=== PATIENT | female | born 1980 | race Caucasian/White ===

== ENCOUNTER 2016-11-06 02:20 | Inpatient (IN) | payer MEDICAID ==
[2016-11-06] MEDS ORDERED: LR 500 ML IV ONE (03:05)
[2016-11-06] MEDS ORDERED: CALCIUM CARBONATE 500 MG CHEWABLE TAB PO PRN (03:05)
[2016-11-06] MEDS ORDERED: LR 1,000 ML IV SCH (03:05)
[2016-11-06] MEDS ORDERED: AMPICILLIN SODIUM 2 GM in NS 100 ML IV ONE (03:30)
[2016-11-06] MEDS ORDERED: OXYTOCIN/RINGERS LACTATE 1,000 ML IV PRN (04:03)
[2016-11-06] MEDS ORDERED: TERBUTALINE SULFATE 1 MG/ML VIAL IV PRN (04:03)
[2016-11-06] MEDS ORDERED: LR 1,000 ML IV PRN (04:03)
[2016-11-06] MEDS ORDERED: EPSOM SALT 454 GM TP PRN (04:03)
[2016-11-06] MEDS ORDERED: LIDOCAINE 1% 30 ML SDV SC PRN (04:03)
[2016-11-06] MEDS ORDERED: MINERAL OIL 60 ML OIL TP PRN (04:03)
[2016-11-06 04:23] LABS: % IMMATURE GRANULYOCYTES 0.3 % (0.0-1.1); ABSOLUTE IMMATURE GRANULOCYTES 0.03 10^3/uL (0.00-0.10); ADD DIFF? NO; ADD MORPH? NO; ADD SCAN? NO; ATYPICAL LYMPHOCYTE FLAG 0 (0-99); FRAGMENT RBC FLAG 0 (0-99); HEMATOCRIT 40.8 % (38.0-47.0); LEFT SHIFT FLG 0 (0-99); LIPEMIA HEMOLYSIS FLAG 90 (0-99); MEAN CELL HEMOGLOBIN CONCENTR. 34.3 g/dL (32.4-36.7); MEAN CELL VOLUME 90.3 fL (81.5-99.8); MEAN PLATELET VOLUME 12.2 fL (8.7-11.7); PLATELET CLUMPS FLAG 0 (0-99); PLATELET COUNT 163 10^3/uL (150-400); RED BLOOD CELL COUNT 4.52 10^6/uL (4.18-5.33); RED CELL DISTRIBUTION WIDTH 15.1 % (11.5-15.2)
[2016-11-06] MEDS ORDERED: AMMONIA AROMATIC 1 EACH AMP IH ONE ×2 (05:02→11:33)
[2016-11-06] MEDS ORDERED: MISOPROSTOL 200 MCG TAB ONE ×2 (05:03→11:34)
[2016-11-06] MEDS ORDERED: TERBUTALINE SULFATE 1 MG/ML VIAL ONE ×2 (05:03→11:34)
[2016-11-06] MEDS ORDERED: LIDOCAINE 1% 30 ML SDV ONE ×2 (05:04→11:34)
[2016-11-06] MEDS ORDERED: OXYTOCIN 10 UNIT/ML VIAL ONE ×2 (05:04→11:34)
--- NOTE | 2016-11-06 08:12 | GHP ---
[f rep st] PREOP HISTORY AND PHYSICAL DATE OF ADMISSION: 11/06/2016 CHIEF COMPLAINT: Labor. HISTORY OF PRESENT ILLNESS: The patient is a 36-year-old G2, P1-0-0-1 female who is at 40 and 6/7 weeks' gestation by LMP and 8 week ultrasound who presents with complaints of painful contractions approximately every 5 minutes. She denies any loss of fluid or vaginal bleeding. She has been amberly on and off for the past 36 hours, but the contractions have intensified over the past few hours. She had a significant history of previous section for non- reassuring heart tones in September of 2013. PAST MEDICAL HISTORY: Significant for HSV. She is on prophylaxis and has no current outbreaks. PAST SURGICAL HISTORY: Significant for a section. 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 FAMILY HISTORY: Noncontributory. ALLERGIES: She has no known drug allergies. MEDICATIONS: She is taking vitamin, acyclovir 400 mg t.i.d., Folic acid, and iron. REVIEW OF SYSTEMS: Positive for painful contractions and nausea and vomiting. No diarrhea. No loss of fluid. No vaginal bleeding. PHYSICAL EXAMINATION: VITAL SIGNS: Blood pressure is 119/78, pulse is 97, respiratory rate is 18, temp is 36.7. GENERAL: She is uncomfortable with contractions. Estimated weight is 9 pounds. Her cervical exam is 2/80/ and -2 station. She is amberly every 5 minutes. heart tones are in the 130s with moderate variability and positive accelerations. LABORATORY DATA: Significant for A-positive antibody screen, negative rubella immune, RPR nonreactive, hepatitis B surface antigen negative, HIV negative, gonorrhea and chlamydia negative, 1-hour Glucola was 94. She is GBS positive. ASSESSMENT AND PLAN: This is a 36-year-old, G2, P1 female who is at 40 and 6/7 weeks' gestation in early labor with previous section. Desires trial of labor. The risks of uterine rupture, emergency section have been discussed with the patient, and the patient understands these risks and desires for as trial of labor. I have discussed extensively with the patient that she does likely have a macrosomic fetus, and if her labor does not progress normally , I would recommend delivery which the patient has agreed to. well-being is reassuring. GBS positive. She has received 2 doses of antibiotics. Will plan on rupture of membranes after she obtains an epidural. /[id number]/MODL MTDD
[2016-11-06] MEDS: AMPICILLIN SODIUM 1 GM in NS 100 ML IV SCH ×2 (08:30→16:48)
[2016-11-06] MEDS ORDERED: fentaNYL 100 MCG/2 ML INJ ONE (08:51)
[2016-11-06] MEDS ORDERED: BUPIVACAINE 0.25% 30 ML SDV ONE (08:51)
[2016-11-06] MEDS ORDERED: fentaNYL 2MCG/ML/BUP 0.1% RTU 100 ML BAG EP ONE (09:02)
[2016-11-06] MEDS ORDERED: PHENYLEPHRINE HCL 100 MCG/ML SYR ONE (09:02)
[2016-11-06] MEDS ORDERED: LR 500 ML IV SCH (10:00)
[2016-11-06] MEDS ORDERED: ceFAZolin 2 GM in D5W 100 ML IV ONE ×2 (12:17→12:30)
[2016-11-06] MEDS ORDERED: LIDO/EPI 2% **for epidural** 20 ML SDV ONE (12:33)
[2016-11-06] MEDS ORDERED: SIMETHICONE 80 MG TAB CHEW PO PRN (12:59)
[2016-11-06] MEDS ORDERED: PROMETHAZINE HCL 25 MG/ML VIAL IVP PRN (12:59)
--- NOTE | 2016-11-06 12:59 | OBPROG ---
OBG Progress Note Assessment/Plan: Assessment: 36 yo @ 40 6/7, trial of labor, arrest of dilation, meconium staining Plan: 11/06/16 12:57 FWB reassuring. Have previously discussed cephalopelvic disproportion, discussed no cervical change since this morning, would not augment with pitocin given previous , recommend delivery. Patient agrees to this plan. Subjective: 36 yo @ 40 6/7, trial of labor, arrest of dilation, meconium staining- comfortable with epidural. Objective: 11/06/16 03:20 Patient ABO/Rh A POSITIVE 11/06/16 03:20 VSS - SVE Dilation (cm): 2 Effacement (%): 80 Station: -2 Current Contraction Pattern: Regular FHR (bpm): 130 FHR Pattern Variability: Moderate FHR Category: 2 Membranes: AROM Amniotic Fluid Color: Meconium Stained-Light ICD10 Worksheet Patient Problems: Problems Problem Status Diagnosed delivery delivered Acute History of herpes genitalis Acute Hx LEEP (loop electrosurgical excision procedure), cervix, Acute Rubella nonimmune status, delivered, current hospitalization Acute
[2016-11-06] MEDS ORDERED: ceFAZolin 2 GM/DEXTROSE 100 ML IV ONE (13:00)
[2016-11-06] MEDS ORDERED: OXYTOCIN 100 UNITS/10 ML VIAL ONE (13:14)
[2016-11-06] MEDS ORDERED: ONDANSETRON 4 MG/2 ML VIAL ONE (13:26)
[2016-11-06] MEDS ORDERED: morphINE PF 5 MG/10 ML INJ ONE (13:31)
--- NOTE | 2016-11-06 13:39 | OBPROC ---
- Delivery Pre-op Diagnoses: Failure to progress. Previous C/S Post-op Diagnoses: Failure to progress. Previous C/S Procedure: Repeat Surgeon: Eden Sharma [employer] Assistant: Daniat Sorensen Anesthesiologist: Sami Cabrera Account Leader/BROOM MACHINE OPERATOR: Haley Bettencourt Anesthesia: Spinal Complications: None Specimen(s)/Path: Other (Specify) (cord blood) IV Fluid (ml): 1,100 EBL: 800 - Info Infant A Delivery Date: 11/06/16 Delivery Time: 13:22 Sex of : Male Score (1 Min): 8 Score (5 Min): 9
[2016-11-06] MEDS ORDERED: MEPERIDINE 25 MG/ML SYR ONE (13:41)
[2016-11-06] MEDS ORDERED: KETOROLAC 30 MG/1 ML SDV ONE (14:21)
[2016-11-06] MEDS ORDERED: OXYTOCIN/RINGERS LACTATE 20 UNIT/1,000 ML BAG IV ONE (14:22)
[2016-11-06] MEDS: KETOROLAC 30 MG/1 ML SDV IVP SCH ×2 (14:45→21:02)
[2016-11-06 16:19] VITALS: RESP 16
[2016-11-06] MEDS: DOCUSATE SODIUM 100 MG CAP PO PRN (21:02)
[2016-11-07] MEDS: KETOROLAC 30 MG/1 ML SDV IVP SCH ×2 (03:16→09:25)
[2016-11-07 06:41] LABS: % IMMATURE GRANULYOCYTES 0.5 % (0.0-1.1); ABSOLUTE IMMATURE GRANULOCYTES 0.06 10^3/uL (0.00-0.10); ADD DIFF? NO; ADD MORPH? NO; ADD SCAN? NO; ATYPICAL LYMPHOCYTE FLAG 0 (0-99); FRAGMENT RBC FLAG 0 (0-99); HEMOGLOBIN 10.2 g/dL (12.6-16.3); LEFT SHIFT FLG 10 (0-99); LIPEMIA HEMOLYSIS FLAG 90 (0-99); MEAN CELL HEMOGLOBIN 31.3 pg (27.9-34.1); MEAN PLATELET VOLUME 11.4 fL (8.7-11.7); PLATELET CLUMPS FLAG 0 (0-99); PLATELET COUNT 146 10^3/uL (150-400); RED BLOOD CELL COUNT 3.26 10^6/uL (4.18-5.33); RED CELL DISTRIBUTION WIDTH 15.2 % (11.5-15.2)
--- NOTE | 2016-11-07 08:37 | SOAPPROG ---
SOAP Progress Note Assessment/Plan: Assessment: 36 y.o. female / post-op day #1. Recovering well. Incision CDI. . Plan: Routine care. Discontinue benítez bulb, remove bandage, Hep lock IV. 11/07/16 08:34 Subjective: Reports feeling well with good pain control and minimal vaginal bleeding. Incision CDI. Appropriate mood and good support system. well. Objective: Vital Signs Temp Pulse Resp BP Pulse Ox 36.2 C 70 16 82/52 L 93 11/07/16 06:30 11/07/16 06:30 11/07/16 06:30 11/07/16 06:30 11/07/16 06:30 Laboratory Results 11/07/16 06:20 11/06/16 11/07/16 11/08/16 05:59 05:59 05:59 Intake Total 3950 Output Total 1950 Balance 1999 - Time Spent With Patient Time Spent With Patient: 20 minutes - Pending Discharge Pending Discharge Within 24 Hours: No Pending Discharge Within 48 Hours: Yes Pending Discharge Date: 11/09/16 Pending Discharge Time: 11:00 Physical Exam - Physical Exam General Appearance: WD/WN, alert, no apparent distress EENT: normal ENT inspection Neck: non-tender, full range of motion Respiratory: chest non-tender, lungs clear, normal breath sounds Cardiac/Chest: regular rate, rhythm Abdomen: normal bowel sounds, non-tender, soft Pelvic Exam: normal external exam Rectal: deferred Back: Normal inspection Skin: normal color, warm/dry Lymphatic: no adenopathy Extremities: normal range of motion, non-tender, normal inspection Neuro/Psych: no motor/sensory deficits, alert, normal mood/affect, oriented x 3 ICD10 Worksheet Patient Problems: Problems Problem Status Diagnosed delivery delivered Acute History of herpes genitalis Acute Hx LEEP (loop electrosurgical excision procedure), cervix, Acute Rubella nonimmune status, delivered, current hospitalization Acute
[2016-11-07] MEDS ORDERED: LACTULOSE 20 GM/30 ML UDCUP PO PRN (08:38)
[2016-11-07] MEDS ORDERED: BISACODYL 10 MG SUPP PR PRN (08:38)
[2016-11-07] MEDS ORDERED: POLYETHYLENE GLYCOL 3350 17 GM PKT PO PRN (08:38)
[2016-11-07] MEDS: DOCUSATE SODIUM 100 MG CAP PO PRN (10:27)
[2016-11-07] MEDS: IBUPROFEN 600 MG TAB PO PRN ×2 (15:33→18:51)
[2016-11-07] MEDS: HYDROCODONE/APAP 5/325 TAB PO PRN ×2 (18:51→22:36)
[2016-11-08] MEDS: IBUPROFEN 600 MG TAB PO PRN ×4 (01:17→19:19)
[2016-11-08] MEDS: HYDROCODONE/APAP 5/325 TAB PO PRN ×6 (03:07→23:56)
--- NOTE | 2016-11-08 08:44 | SOAPPROG ---
SOAP Progress Note Assessment/Plan: Assessment: POD#2, recovering well after rLTCS Rh pos, Rub imm. s/p tdap, declined flu vax Plan: continue to work on with today. Baby is almost at 10% weight loss, and she is trying to avoid the need to supplement plan discharge home on POD#3 11/08/16 08:41 11/08/16 08:43 Subjective: feeling well. continuing to put baby on breast regularly to stimulate milk production. Did breastfeed her other child. Pain controlled with motrin and norco. ambulating and voiding. has showered Objective: Vital Signs Temp Pulse Resp BP Pulse Ox 36.9 C 68 16 94/55 L 94 11/08/17 03:08 11/08/16 03:08 11/08/16 03:08 11/08/16 03:08 11/08/16 03:08 Laboratory Results 11/07/16 06:20 11/07/16 11/08/16 11/09/16 05:59 05:59 05:59 Intake Total 3950 Output Total 1950 2500 Balance 2000 -2500 Gen: alert, awake, NAD Breasts: soft Abd: soft, appropriately tender, appropriate distention Incision: c/d/i Ext: no edema ICD10 Worksheet Patient Problems: Problems Problem Status Diagnosed delivery delivered Acute History of herpes genitalis Acute Hx LEEP (loop electrosurgical excision procedure), cervix, Acute Rubella nonimmune status, delivered, current hospitalization Acute
[2016-11-08] MEDS: DOCUSATE SODIUM 100 MG CAP PO PRN (10:52)
[2016-11-09] MEDS: IBUPROFEN 600 MG TAB PO PRN ×2 (00:41→07:58)
[2016-11-09] MEDS: HYDROCODONE/APAP 5/325 TAB PO PRN ×2 (05:21→09:24)
[2016-11-09] MEDS: DOCUSATE SODIUM 100 MG CAP PO PRN (07:58)
--- NOTE | 2016-11-09 08:22 | OBGCSDC ---
General Delivery Information - General Info : 2 Para: 2 Delivery Date: 11/06/16 Delivery Time: 13:22 Delivery Physician/CNM: Eden Sharma Part Time Receptionist: Danita Sorensen Admission Date: 11/05/16 Labs: Patient ABO/Rh A POSITIVE 11/06/16 03:20 Hct 30.0 % (38.0-47.0) L D 11/07/16 06:20 - Info Infant A Sex of : Male Score (1 Min): 8 Score (5 Min): 9 Vaginal - Diagnosis Amniotic Fluid Color: Meconium Stained-Light - Delivery IUP (Weeks): 40 6/7 weeks Number of Prior Sections: 1 Indications for Prior Section: Non-reas. Status Indications for Current Section: Arrest of Descent Procedures: LTCS Intra-op Complications: None EBL: 800 Anesthesia: Spinal Discharge Information - Discharge Information Discharge Medications: Ibuprofen, Vitamins, Vicodin Complications: repeat C/S for FTD Condition: Good Instruction/Follow Up: Two Weeks Discharge Physician/CNM: Danita Sorensen Discharge Date: 11/09/16 Dictated: No
[2016-11-09 11:58] VITALS: BP 121/71; PULSE 68; TEMP 97.5; O2SAT 98
== END 2016-11-09 13:25 | disposition home or self-care (01) | DRG 765 ==
LOC: FLD 02:20 → OBSVTOIN 02:20 → FOB 16:18
PROVIDERS: ADMIT Obstetrics & Gynecology; ATTEND Obstetrics & Gynecology
PROC: 10D00Z1 Extraction of Products of Conception, Low, Open Approach (ICD-10-PCS; principal; 2016-11-06)
DX: O62.1 Secondary uterine inertia (principal); O98.32 Other infections with a predominantly sexual mode of transmission complicating childbirth; O34.219 Maternal care for unspecified type scar from previous cesarean delivery; Z37.0 Single live birth; Z3A.40 40 weeks gestation of pregnancy; O09.523 Supervision of elderly multigravida, third trimester; O99.824 Streptococcus B carrier state complicating childbirth; O77.0 Labor and delivery complicated by meconium in amniotic fluid
CPT/HCPCS: J0290; J0690; J1885; J2274; J2370; J2405; J2590; J3010; J3105